=== PATIENT | female | born 1965 ===

== ENCOUNTER 2024-01-09 07:19 | Outpatient (CLI) | payer OTHER ==
[~2024-01-09 07:19] MED LIST: ADVAIR 2501 DISK W/1; NEXIUM20 MG/PACK; PROVENTIL2 MG; SINGULAIR4 MG
== END 2024-01-09 07:24 | disposition home or self-care (01) ==
LOC: SONOGRAMA 07:19
PROVIDERS: ATTEND Pathology Anatomic Pathology
DX: R22.0 Localized swelling, mass and lump, head (principal)